=== PATIENT | female | born 1960 | race American Indian/Alaskan Native ===

== ENCOUNTER 2020-11-21 04:23 | Emergency (ER) | payer MEDICARE ==
[2020-11-21 05:57] LABS: Basophils # (Auto) 0.1 K/mm3 (0.0-0.1); Eosinophils % (Auto) 0.7 % (0.0-4.3); Hematocrit 38.7 % (30.3-42.9); Hemoglobin 12.8 gm/dl (10.1-14.3); Lymphocytes % (Auto) 46.3 % (13.4-35.0); Mean Corpuscular HGB Conc 33 % (30-34); Mean Corpuscular Volume 84 fl (79-97); Monocytes # (Auto) 0.4 K/mm3 (0.0-0.8); Monocytes % (Auto) 5.4 % (0.0-7.3); Platelet Count 300 K/mm3 (140-440)
[2020-11-21 06:20] LABS: Alanine Aminotransferase 21 units/L (7-56); Albumin 4.1 g/dL (3.9-5); BUN/Creatinine Ratio 16; Blood Urea Nitrogen 13 mg/dL (7-17); Hemolysis Index 4
[2020-11-21] MEDS ORDERED: LORazepam 2 MG/ML VIAL IM ONE (06:21)
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
[2020-11-21 06:56] LABS: RBC,Urine < 1.0 /HPF (0.0-6.0)
[2020-11-21 07:27] LABS: Bilirubin,Urine NEG (Negative); Blood,Urine NEG (Negative); Color,Urine Straw (Yellow); Protein,Urine <15 mg/dL mg/dL (Negative); Urobilinogen,Urine < 2.0 mg/dL (<2.0)
[2020-11-21 08:54] LABS: Cannabinoid Screen,Urine Negative; Cocaine Screen,Urine Negative; Methadone Screen,Urine Negative; Opiate Screen,Urine Negative
[2020-11-21 09:20] LABS: Amphetamine Screen,Urine Negative; Benzodiazepines Screen,Urine Negative
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
[2020-11-21] MEDS ORDERED: INSULIN REGULAR, HUMAN 100 UNITS/1 ML SUB-Q ONE (12:32)
[2020-11-21 16:35] VITALS: BP 131/73
== END 2020-11-21 16:36 | disposition home or self-care (01) ==
LOC: ED 04:23
DX: E11.65 Type 2 diabetes mellitus with hyperglycemia (principal); F43.10 Post-traumatic stress disorder, unspecified; F41.9 Anxiety disorder, unspecified; I10 Essential (primary) hypertension; Z90.710 Acquired absence of both cervix and uterus; Z98.51 Tubal ligation status; Z98.890 Other specified postprocedural states; Z79.899 Other long term (current) drug therapy; Z88.8 Allergy status to other drugs, medicaments and biological substances
CPT/HCPCS: 36415; 80053; 80307; 81001; 82962; 85025; 96372; 99284; J2060; 80320; G0480; J1815

== ENCOUNTER 2020-11-23 19:26 | Emergency (ER) | payer MEDICARE ==
[2020-11-23 20:27] VITALS: BP 116/70
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
== END 2020-11-23 22:05 | disposition home or self-care (01) ==
LOC: ED 19:26
DX: G47.00 Insomnia, unspecified (principal); F43.10 Post-traumatic stress disorder, unspecified; Z91.041 Radiographic dye allergy status; Z88.8 Allergy status to other drugs, medicaments and biological substances
CPT/HCPCS: 99282